=== PATIENT | male | born 1950 | race African-American/Black ===

== ENCOUNTER 2016-08-11 20:55 | Outpatient (CLI) | payer BC | END 2016-08-12 06:30 | disposition home or self-care (01) | LOC: SLEEP 20:55 | PROVIDERS: ATTEND Family Medicine | DX: I10 Essential (primary) hypertension (principal); G47.36 Sleep related hypoventilation in conditions classified elsewhere | CPT/HCPCS: 95811 ==

== ENCOUNTER 2020-06-27 14:02 | Outpatient (CLI) | payer MEDICARE, BC ==
[~2020-06-27] VITALS: Ht 182.9 cm; Wt 122.5 kg
[2020-06-27 14:02] VITALS: BP 157/83
--- NOTE | 2020-06-27 14:21 | NUR ---
Patient's initial O2 saturation 86% after exertion from walking from parking lot. Pt does not appear to be in any distress. Pt placed on 1.5L o2 and o2 saturation improved to 93-94%. O2 turned off and patient maintaining sats at 90-91%. Mahsa Osborne MERCHANDISER notified - okay to continue infusion and Mahsa will get home o2 set up for patient as needed.
[2020-06-27] MEDS ORDERED: diphenhydrAMINE 50 MG/ML INJ (BENADRYL) IV PRN (14:30)
[2020-06-27] MEDS ORDERED: EPINEPHrine INJECTION 1 MG/ML AMP IM PRN (14:30)
[2020-06-27] MEDS ORDERED: BAMLANIVIMAB 700 MG in NS 200 ML IV ONE (14:30)
[2020-06-27 15:48] VITALS: BP 128/62
--- NOTE | 2020-06-27 16:11 | NUR ---
[facility] WILL BE DELIVERING OXYGEN TO THE PT'S HOME PER PT'S REQUEST. THIS OXYGEN WILL BE AVAILABLE ONCE PT RETURNS HOME.
[2020-06-27 16:40] VITALS: BP 147/78
== END 2020-06-27 17:05 | disposition home or self-care (01) ==
LOC: INFUSION 14:02
PROVIDERS: ATTEND Nurse Practitioner Family
DX: U07.1 COVID-19 (principal); I10 Essential (primary) hypertension; E11.9 Type 2 diabetes mellitus without complications; E03.4 Atrophy of thyroid (acquired)

== ENCOUNTER → 2021-12-09 | Outpatient (CLI) | payer MEDICARE, BC ==
--- NOTE | 2021-12-09 12:54 | Diagnostic Imaging Report ---
Indication: Cough. Time of Exam: 12:42 PM No prior studies are available for comparison. Heart size normal. Right hemidiaphragm is mildly elevated. No infiltrates are seen. There is no effusion or pneumothorax. IMPRESSION: No acute cardiopulmonary process is detected. Dictated by: Dictated on workstation # [id number]
== END ==
LOC: RAD 12:18
PROVIDERS: ATTEND Family Medicine
DX: R05.9 Cough, unspecified (principal)
CPT/HCPCS: 71046

== ENCOUNTER → 2022-03-24 | Outpatient (CLI) | payer MEDICARE, BC ==
--- NOTE | 2022-03-24 16:30 | Diagnostic Imaging Report ---
INDICATION: Right-sided abdominal pain. TECHNIQUE: Multiple contiguous axial images were obtained through the abdomen and pelvis without the use of intravenous contrast. Auto Exposure Controls were utilized during the CT exam to meet ALARA standards for radiation dose reduction. There is no prior CT for comparison. FINDINGS: Visualized portions of the lung bases are clear. There were no pleural fluid collections. There is no free intraperitoneal air. The liver shows diffuse low-density change compatible with fatty infiltration. There is questionable small lucency in the liver superiorly measuring about 1 cm; this is difficult to characterize due to its small size. Gallbladder appears normal. The spleen, adrenals, and pancreas are normal. Kidneys bilaterally are unremarkable. There is no retroperitoneal mass or adenopathy. There is no ascites. There is a small fat-containing periumbilical hernia. Visualized bowel loops show no sign of bowel obstruction or focal bowel wall thickening. In the rectus muscle on the right side anteriorly at the level of the mid abdomen, there is a hyperdense finding measuring about 11.3 x 5.8 x 9.0 cm. The finding is compatible with a rectus sheath hematoma. IMPRESSION: Findings compatible with right-sided rectus sheath hematoma in the mid abdomen as above, measuring 11.3 x 5.8 x 9.0 cm. A CTA study may be helpful to determine if there is active extravasation. There is no ascites. There is a small periumbilical hernia containing fat. There is fatty infiltration of the liver with small 1 cm low-density lesion in the right lobe of the liver superiorly, difficult to characterize due to its small size. Dictated by: Dictated on workstation # [id number]
== END ==
LOC: RAD 15:17
PROVIDERS: ATTEND Family Medicine
DX: K42.9 Umbilical hernia without obstruction or gangrene (principal); K76.0 Fatty (change of) liver, not elsewhere classified
CPT/HCPCS: 74176

== ENCOUNTER → 2023-01-25 | Outpatient (CLI) | payer MEDICARE, OTHER ==
[~2023-01-25] MED LIST: RT-ALBUTEROL SULF 2.5 MG/3 ML PRE-MIX VIAL INH ONE
== END ==
LOC: RT 07:37
PROVIDERS: ATTEND Family Medicine
DX: R05.8 Other specified cough (principal); R05.3 Chronic cough; U09.9 Post COVID-19 condition, unspecified; I39 Endocarditis and heart valve disorders in diseases classified elsewhere
CPT/HCPCS: 94060; 94726; 94729